=== PATIENT | female | born 1955 | race Caucasian/White ===

== ENCOUNTER → 2016-09-06 | Outpatient (CLI) | payer OTHER ==
[~2016-09-06] MED LIST: IOPAMIDOL (ISOVUE-300) 50 ML VIAL IV ONE
--- NOTE | 2016-09-06 11:35 | CT ---
CT Scan of the Abdomen and Pelvis (With Contrast) Clinical Indications: Evaluate adrenal nodule. Comparison: November 26, 2008, and February 01, 2016. Technique: Dilute contrast was given orally prior to scanning. 90 mL of Isovue-300 were given intra venously by machine power injection. Multidetector helical CT imaging was performed from the diaphra gm to the symphysis pubis. Dose reduction techniques were utilized. Findings: Abdomen: The lung bases are clear, and there is no significant pleural fluid. The liver is normal. The gallbladder is surgically absent. The biliary tree is unremarkable. The pancreas and spleen are normal. The right adrenal gland is normal. The right kidney contains multiple parapelvic cysts. The left adrenal mass has increased minimally in size from 2008, previously measuring 1.7 x 2.2 cm, now measuring 1.9 x 2.4 cm. It has a relatively benign well-circumscribed appearance with heterogeneous e nhancement and some suggestion of superior fat. Previous washout characteristics suggest that it was a benign mass. Multiple parapelvic cysts are seen on the left. No adenopathy and no masses are found. No aneurysm of the abdominal aorta. Pelvis: The urinary bladder is unremarkable. No free fluid in the pelvis. No masses are identified. Bowel loops are normal. Impression: 1. Minimal increase in size in the adrenal nodule. It still maintains a benign appearance and has inc reased minimally over 8 years. Previous washout characteristics were consistent with a benign adenoma 2. Multiple parapelvic cysts, benign.
== END ==
LOC: FIMAGING 07:44
PROVIDERS: ATTEND Surgery
DX: E27.8 Other specified disorders of adrenal gland (principal); N28.1 Cyst of kidney, acquired
CPT/HCPCS: Q9967

== ENCOUNTER → 2017-05-09 | Outpatient (CLI) | payer OTHER | LOC: FIMAGING 11:26 | PROVIDERS: ATTEND Family Medicine | DX: Z12.39 Encounter for other screening for malignant neoplasm of breast (principal); R92.8 Other abnormal and inconclusive findings on diagnostic imaging of breast | CPT/HCPCS: G0204 ==